=== PATIENT | female | born 1980 | race Caucasian/White ===

== ENCOUNTER → 2018-03-15 13:09 | Outpatient (CLI) | payer MEDICAID, SELFPAY ==
--- NOTE | 2018-03-15 14:41 | NEURO ---
NCS and/or EMG Patient Report Ordering Doctor: Donna Chandler DATE OF SERVICE: 03/15/18 Mariola Rivas is a 38-year-old female presents for electrodiagnostic testing of the upper limbs. She has chief complaint of numbness and tingling in both hands. Electrodiagnostic findings: Median motor nerve demonstrates normal distal latency, amplitude and conduction velocity bilaterally. Normal ulnar motor response bilaterally. Prolonged median sensory latencies noted bilaterally. Normal ulnar and radial sensory responses. Needle EMG testing shows 1+ fibrillations in the right pronator teres. No denervation noted in any other muscles tested. Electrodiagnostic impression: This is an abnormal study. 1. Electrodiagnostic findings demonstrate bilateral median mononeuropathy. This is consistent with a mild bilateral carpal tunnel syndrome If there are any further questions, please do not hesitate to contact me
== END ==
DX: R20.0 Anesthesia of skin (principal); R20.2 Paresthesia of skin
CPT/HCPCS: 95886; 95912

== ENCOUNTER → 2019-01-01 | Outpatient (CLI) | payer MEDICAID, SELFPAY ==
[2017-06-28 10:26] VITALS: BMI 30.7
[2019-01-01 17:22] LABS: Absolute Lymphocyte Count 1.58 X10^3/ul (0.83-4.51); Absolute Neutrophil Count 4.7 X10^3/uL (2.0-7.7); Basophil# 0.05 X10^3/uL; Basophil% 0.7 % (0-1); Eosinophil# 0.12 X10^3/uL; Eosinophils% 1.7 % (0-5); Hemoglobin 13.6 g/dl (12.0-15.0); Lymphocyte # 1.58 X10^3/ul (4.0); Lymphocyte % 22.3 % (19-41); Mean Corp Hgb Conc 33.2 g/gl (32-36); Mean Corpuscular Volume 90.5 fL (81-99); Mean Platelet Vol. 10.2 fl (6.2-12.0); Monocyte# 0.59 X10^3/uL; Monocyte% 8.3 % (0-10); Neutrophil # 4.73 X10^3/uL (2.7-7.7); Neutrophil % 66.9 % (47-70); Platelet Count 265 K/mm3 (150-450); RBC Distribution Width CV 13.9 % (11.6-14.6); Red Blood Count 4.53 M/mm3 (4.2-5.4); White Blood Count 7.1 K/mm3 (4.4-11.0)
[2019-01-01 17:29] LABS: POSITIVE COUNT NO; POSITIVE DIFFERENTIAL NO; POSITIVE MORPHOLOGY NO
[2019-01-01 17:48] LABS: ALB/GLOB Ratio 1.1 RATIO (0.9-2.4); AST(SGOT) 22 U/L (15-37); Alanine Aminotransfer ALT/SGPT 26 U/L (13-56); Albumin, Serum 4.1 g/dL (3.2-5.0); Alkaline Phosphatase 64 U/L (45-117); Anion Gap 6 (5-15); BUN 12 mg/dL (7-18); BUN/Creat Ratio 14.5 RATIO (10-20); Chloride 103 mmol/L (98-107); Creatinine, Serum 0.83 mg/dL (0.55-1.02); EST Glomerular Filtration Rate 82 mL/min (>60); Est Glom Filt Rate - Afr Amer 99 mL/min (>60); Globulin 3.9 g/dL (2.2-4.2); Glucose 90 mg/dL (74-106); Potassium 3.8 mmol/L (3.5-5.1); Sodium Level 136 mmol/L (136-145)
== END | disposition home or self-care (01) ==
LOC: LABSPEC 17:03
PROVIDERS: Family Provider Physician Assistant; PCP Physician Assistant
DX: R53.83 Other fatigue (principal); R51 Headache
CPT/HCPCS: 80053; 85025

== ENCOUNTER → 2019-07-26 13:58 | Outpatient (CLI) | payer MEDICAID, SELFPAY ==
[2019-07-26 16:16] LABS: Free T3 2.9 pg/mL (2.18-3.98); Thyroid Stim Hormone (TSH) 2.65 uIU/mL (0.358-3.74)
== END ==
PROVIDERS: Internal Medicine Endocrinology, Diabetes & Metabolism; Family Provider Nurse Practitioner Primary Care; PCP Nurse Practitioner Primary Care
DX: E03.8 Other specified hypothyroidism (principal); E06.3 Autoimmune thyroiditis; Z79.899 Other long term (current) drug therapy
CPT/HCPCS: 84439; 84443; 84481

== ENCOUNTER → 2019-08-06 15:41 | Outpatient (CLI) | payer MEDICAID, SELFPAY ==
[2019-07-26 14:04] VITALS: BMI 30.7
== END ==
PROVIDERS: Family Provider Nurse Practitioner Primary Care; PCP Nurse Practitioner Primary Care
DX: Z79.899 Other long term (current) drug therapy (principal)
CPT/HCPCS: 36415; 80178

== ENCOUNTER → 2019-11-23 13:07 | Outpatient (CLI) | payer MEDICAID, SELFPAY ==
[2019-07-26 14:04] VITALS: BMI 30.7
[2019-11-23 13:59] LABS: Hematocrit 42.2 % (37-47); Hemoglobin 13.8 g/dL (12.0-15.0); Mean Corp Hgb Conc 32.7 g/dL (32-36); Mean Corpuscular Hgb 29.4 pg (27.0-32.0); Mean Corpuscular Volume 89.8 fL (81-99); Mean Platelet Vol. 10.3 fl (6.2-12.0); Platelet Count 271 K/mm3 (150-450); RBC Distribution Width CV 12.5 % (11.6-14.6); RBC Distribution Width SD 41.1 fl (35.1-43.9); White Blood Count 4.3 K/mm3 (4.4-11.0)
[2019-11-23 14:21] LABS: Valproic Acid (Depakene) Level 11 ug/mL (50-100)
[2019-11-23 14:32] LABS: Hemoglobin A1c 5.5 % (4.2-6.3)
[2019-11-23 14:43] LABS: AST(SGOT) 17 U/L (15-37); Alanine Aminotransfer ALT/SGPT 25 U/L (13-56); Anion Gap 4 (5-15); BUN 10 mg/dL (7-18); BUN/Creat Ratio 11.5 RATIO (10-20); Calcium,Total 8.6 mg/dL (8.5-10.1); Chloride 106 mmol/L (98-107); Cholesterol 247 mg/dL (200); Creatinine, Serum 0.87 mg/dL (0.55-1.02); EST Glomerular Filtration Rate 77 mL/min (>60); Est Glom Filt Rate - Afr Amer 94 mL/min (>60); Glucose 147 mg/dL (74-106); High Density Lipoprotein 47 mg/dL; Potassium 3.9 mmol/L (3.5-5.1); Sodium Level 138 mmol/L (136-145); Thyroid Stim Hormone (TSH) 0.03 uIU/mL (0.358-3.74); Triglycerides 246 mg/dL; Very Low Density Lipoprotein 49 mg/dL (5-40)
== END ==
PROVIDERS: PCP Nurse Practitioner Primary Care
DX: Z79.899 Other long term (current) drug therapy (principal)
CPT/HCPCS: 36415; 80048; 80061; 80164; 83036; 84443; 84450; 84460; 85027

== ENCOUNTER → 2020-05-15 17:32 | Outpatient (CLI) | payer MEDICAID, SELFPAY ==
[2019-07-26 14:04] VITALS: BMI 30.7
== END ==
PROVIDERS: PCP Nurse Practitioner Primary Care; Referring Provider Nurse Practitioner Primary Care; Visit Provider Nurse Practitioner Primary Care
DX: Z11.59 Encounter for screening for other viral diseases (principal); R06.02 Shortness of breath
CPT/HCPCS: 87635; C9803; U0003

== ENCOUNTER 2020-06-05 09:00 | Outpatient (RCR) | payer MEDICAID, SELFPAY ==
[2019-07-26 14:04] VITALS: BMI 30.7
--- NOTE | 2020-06-05 09:00 | BH.SGPN.GN ---
Behaviors/Verbalizations/Mental Status: []Client alert and oriented, casually dressed. Eye contact good. Motor activity appropriate. Speech within normal limits. Affect congruent, mood anxious. Thoughts linear, logical, no signs of hallucinations or delusions. Reviewed client?s symptom tracker, no risk or plan for suicide ideation as of 06/05/20. Client Response/Progress/Benefit: []Client responded well to group, engaged and participated throughout discussion. Client reported feeling anxious as it was her first day of the IOP program. Client shared that she related to other group member?s stressors and she was glad to be here. Client benefited from group as she received helpful feedback and advice from other group members. Client will continue IOP to increase the use of healthy coping skills, decrease depressive symptoms, and improve daily functioning. Narrative Note: []
--- NOTE | 2020-06-05 10:10 | BH.SGPN.GN ---
Behaviors/Verbalizations/Mental Status: []Client alert and oriented, neatly dressed and groomed. Eye contact good. Motor activity appropriate. Speech within normal limits. Affect congruent l, mood anxious. Thoughts linear, logical, no signs of hallucinations or delusions. Client Response/Progress/Benefit: []Client was an active participant AEB contributing to discussion and participating in activity. Connected with the topic of pitfalls and helped the group discuss barriers that keep them from choosing a healthier path to mental wellness such as pitfalls. Group worked together to identify examples of personal pitfalls which included; isolation, low self-esteem, wanting to quit, increased negative distortions, increased hopelessness, feeling overwhelmed,increased anxiety and stress, and feeling of burnout. Engaged during the activity and took on a leadership role. Client benefited from group as she shared she fears new things as they are not familiar to her. Client made progress as she was open and communicated with other group members on her first day of treatment and was able to ask for help. Client will continue IOP to promote the use of healthy coping skills, decrease MH symptoms, and regulate emotions. Narrative Note: []
--- NOTE | 2020-06-05 11:11 | BH.SGPN.GN ---
Behaviors/Verbalizations/Mental Status: []Client alert and oriented, casual dress, hygiene tended to. Eye contact good. Motor activity appropriate. speech and tone WNL. Affect constricted, mood anxious and depressed. Thoughts linear, logical, no signs of hallucinations or delusions. Client Response/Progress/Benefit: []Client receptive of session, engaged throughout AEB providing input during activity and discussion. Client actively provided suggestions as participants worked to complete the challenge task. She contributed as group made connections between skills used to overcome ?pitfalls? in activity and addressing own personal pitfalls impacting mental health. Client noted that effective communication and using deep-breathing skills helped her to reduce anxiety faced when the activity became stressful. She completed a worksheet identifying personal pitfalls impacting mental health progress; however, declined to share personal pitfalls with group. Client helped the group brainstorm strategies to overcome pitfalls, such as asking for help, though again declined to share a healthy skill she can use to work towards addressing one of his own identified pitfalls. Appeared to benefit from gaining insight on personal pitfalls and strategies to overcome these pitfalls. Progress limited as it was client?s first day in the IOP program. Client to continue IOP level of care to increase insight into healthy skills, improve emotion regulation, and prevent decompensation. Narrative Note: []
--- NOTE | 2020-06-10 09:00 | BH.COMM ---
Communication Note - Communication with Client Communication Note: sent an email today stating that she was not feeling well and would not attend group today.
--- NOTE | 2020-06-11 10:10 | BH.COMM_ITS ---
Communication Note - Communication with Client Communication Note: Pt sent an email today stating that she is no longer going to continue with IOP. No specific reason given however she noted she has appt with printing shop supervisor tomorrow whom she will continue to follow. Scheduled to meet with [facility] psychiatrist today which she will miss.
--- NOTE | 2020-06-11 10:10 | BH.COMM ---
Communication Note - Communication with Client Communication Note: Pt sent an email today stating that she is no longer going to continue with IOP. No specific reason given however she noted she has appt with ethanol operations manager tomorrow whom she will continue to follow. Scheduled to meet with [facility] psychiatrist today which she will miss.
--- NOTE | 2020-06-13 10:00 | BH.DS ---
Discharge Summary - Demographics Date of Admission:: 06/05/20 Discharge Date: 06/11/20 Presenting Problems at Admission:: Pt is a 40 y/o female with hx of Bipolar. No previous psychiatric admissions. Referred to [facility] by her outpatient therapist due to worsening depression and fleeting SI. Endorses increased appetite, low energy, no motivation, hopelessness, isolation, anhedonia, and increased irritability. Reports poor focus and concentration. Increase in panic attacks. Pt states I have no coping skills... I don't know how to deal with things. Pt describes herself a a people person. however due to the pandemic this has been an issue. Limitedsupport. Hx of trauma. Quit job 4 weeks ago. Long-standing hx of fleeting SI. Reports fleeting SI with thoughts of methods however denies intent. Protective factor is son. Contracts for safety. Future-oriented. Previous suicide attempt at age 13 (OD). Linked with psychiatry and counseling. Isolative. Denies HI or psychosis. Denies substance abuse. Due to fleeing SI, decreased functioning due to MH symptoms, and limited benefit from traditional counseling recommended [facility] level of care. Discharge Diagnoses:: Bipolar, most recent episode depressed. F31.4 Reason for Discharge:: Pt emailed this AM stating I wanted to let you know I don't think I am going to be able to commit to the Outpatient program right now. I will continue with my care at [place] [id number]. I have an appointment with my N.P there tomorrow. I apologise if I caused any inconvenience for you and your staff. My son and I are both feeling under the weather. I Thank you for your understanding and, I appreciate all you have done. Encouraged pt to think about this decision till Tuesday. Will keep case open till 06/13/2020 - Treatment Progress During Treatment & Response: No progress noted as pt only attended one day. Issues Still to be Addressed:: Depression, limited coping skills, fleeting SI, panic attacks, and isolative behaviors. Discharge Recommendations/Instructions:: Encouraged her to continue with [facility] as currently this is the most appropraite level of care. As noted above she will continue to follow up with her reinforcing steel machine operator Ayaka Darby at [place] [id number] on 06/12/20. Will also follow-up with therapist Krystal Wild. Discharge Handout: Complete Discharge Handout with client on aftercare options and continuity of care.
== END 2020-06-13 10:09 | disposition home or self-care (01) ==
LOC: BHIOP 09:00
PROVIDERS: PCP Nurse Practitioner Primary Care; Referring Provider Psychiatry & Neurology Psychiatry; Visit Provider Psychiatry & Neurology Psychiatry
DX: F31.4 Bipolar disorder, current episode depressed, severe, without psychotic features (principal)
CPT/HCPCS: H2020

== ENCOUNTER → 2021-04-08 15:24 | Outpatient (CLI) | payer MEDICAID, SELFPAY ==
[2021-04-08 16:27] LABS: Hematocrit 37.7 % (37-47); Hemoglobin 12.7 g/dL (12.0-15.0); Hemoglobin A1c 5.1 % (3.8-5.6); Mean Corp Hgb Conc 33.7 g/dL (32-36); Mean Corpuscular Hgb 32.8 pg (27.0-32.0); Mean Corpuscular Volume 97.4 fL (81-99); Mean Platelet Vol. 10.4 fl (6.2-12.0); Platelet Count 304 K/mm3 (150-450); RBC Distribution Width CV 13.5 % (11.6-14.6); RBC Distribution Width SD 48.1 fl (35.1-43.9); Red Blood Count 3.87 M/mm3 (4.2-5.4); White Blood Count 5.1 K/mm3 (4.4-11.0)
[2021-04-08 17:31] LABS: AST(SGOT) 27 U/L (15-37); Alanine Aminotransfer ALT/SGPT 27 U/L (13-56); Anion Gap 4 (5-15); BUN 12 mg/dL (7-18); BUN/Creat Ratio 10.3 RATIO (10-20); Calcium,Total 8.4 mg/dL (8.5-10.1); Chloride 107 mmol/L (98-107); Cholesterol 295 mg/dL (200); Creatinine, Serum 1.16 mg/dL (0.55-1.02); EST Glomerular Filtration Rate 55 mL/min (>60); Est Glom Filt Rate - Afr Amer 67 mL/min (>60); Glucose 103 mg/dL (74-106); High Density Lipoprotein 58 mg/dL; Sodium Level 137 mmol/L (136-145); Triglycerides 168 mg/dL; Very Low Density Lipoprotein 34 mg/dL (5-40)
== END ==
PROVIDERS: PCP Nurse Practitioner Primary Care
DX: Z79.899 Other long term (current) drug therapy (principal)
CPT/HCPCS: 36415; 80048; 80061; 80178; 83036; 84443; 84450; 84460; 85027

== ENCOUNTER → 2021-05-13 16:10 | Outpatient (CLI) | payer MEDICAID, SELFPAY ==
[2021-05-13 18:08] LABS: Anion Gap 6 (5-15); BUN 10 mg/dL (7-18); BUN/Creat Ratio 9.2 RATIO (10-20); Calcium,Total 8.5 mg/dL (8.5-10.1); Chloride 107 mmol/L (98-107); Creatinine, Serum 1.09 mg/dL (0.55-1.02); EST Glomerular Filtration Rate 59 mL/min (>60); Est Glom Filt Rate - Afr Amer 71 mL/min (>60); Glucose 95 mg/dL (74-106); Potassium 3.9 mmol/L (3.5-5.1); Sodium Level 140 mmol/L (136-145)
== END ==
DX: Z79.899 Other long term (current) drug therapy (principal)
CPT/HCPCS: 36415; 80048; 80178; 84443

== ENCOUNTER → 2021-08-14 16:21 | Outpatient (CLI) | payer MEDICAID, SELFPAY ==
[2021-08-14 18:12] LABS: Anion Gap 3 (5-15); BUN 13 mg/dL (7-18); BUN/Creat Ratio 14.2 RATIO (10-20); Calcium,Total 9.3 mg/dL (8.5-10.1); Chloride 107 mmol/L (98-107); Creatinine, Serum 0.92 mg/dL (0.55-1.02); EST Glomerular Filtration Rate 72 mL/min (>60); Est Glom Filt Rate - Afr Amer 87 mL/min (>60); Glucose 98 mg/dL (74-106); Sodium Level 136 mmol/L (136-145); Thyroid Stim Hormone (TSH) 7.84 uIU/mL (0.358-3.74)
== END ==
DX: Z79.899 Other long term (current) drug therapy (principal)
CPT/HCPCS: 36415; 80048; 80178; 84443

== ENCOUNTER → 2025-03-12 | Outpatient (CLI) | payer MEDICAID, SELFPAY ==
[2025-03-12 12:36] LABS: Hematocrit 33.1 % (37-47); Hemoglobin 11.0 g/dL (12.0-15.0); Immature Granulocytes Count 0.010 X10^3/uL (0.0-0.0); Mean Corp Hgb Conc 33.2 g/dL (32-36); Mean Corpuscular Volume 94.0 fL (81-99); Mean Platelet Vol. 10.4 fl (6.2-12.0); NRBC Flagged by Analyzer 0 % (0-5); Platelet Count 291 K/mm3 (150-450); RBC Distribution Width CV 14.4 % (11.6-14.6); RBC Distribution Width SD 49.3 fl (35.1-43.9); Red Blood Count 3.52 M/mm3 (4.2-5.4); White Blood Count 4.4 K/mm3 (4.4-11.0)
[2025-03-12 13:04] LABS: AST(SGOT) 61 U/L (<=31); Alanine Aminotransfer ALT/SGPT 45 U/L (<=34); Albumin, Serum 4.3 g/dL (3.5-5.0); Alkaline Phosphatase 36 U/L (35-104); Anion Gap 10 (5-15); BUN 14 mg/dL (4-19); BUN/Creat Ratio 12.2 RATIO (10-20); Calcium,Total 9.3 mg/dL (7.6-11.0); Carbon Dioxide 22.3 mmol/L (21.0-32.0); Chloride 103 mmol/L (98-108); Globulin 2.3 g/dL (2.2-4.2); Glucose 97 mg/dL (70-99); Potassium 4.2 mmol/L (3.3-5.1)
[2025-03-12 13:31] LABS: CORTISOL AM 12.30 ug/dL (6.02-18.40); Cholesterol 349 mg/dL (<=200); Ferritin 10 ng/mL (22-378); Free T3 < 0.4 pg/mL (2.18-3.98); Low Density Lipoprotein Calc. 246 mg/dL; Triglycerides 195 mg/dL; Very Low Density Lipoprotein 39 mg/dL (5-40); Vitamin B12 713 pg/mL (180-914); Vitamin D,25 Hydroxy 18.5 ng/mL (30-100); cholesterol:hdl ratio screen 5.48
[2025-03-14 08:13] LABS: Thyroid Stim Immunoglob <0.10 IU/L (0.00-0.55)
== END | disposition home or self-care (01) ==
LOC: VSLAB 11:07
PROVIDERS: PCP Family Medicine; Visit Provider Family Medicine
DX: E03.9 Hypothyroidism, unspecified (principal); Z13.6 Encounter for screening for cardiovascular disorders; Z13.228 Encounter for screening for other metabolic disorders; R53.83 Other fatigue
CPT/HCPCS: 36415; 80053; 80061; 82306; 82533; 82607; 82728; 83036; 84439; 84443; 84445; 84481; 85025; 86376; 86800